=== PATIENT | female | born 2000 ===

== ENCOUNTER 2025-04-06 08:54 | Outpatient (REF) | payer OTHER, SELFPAY | END 2025-04-06 08:55 | disposition home or self-care (01) | LOC: HO.MAMMO 08:54 | PROVIDERS: PCP Emergency Medicine; Visit Provider Emergency Medicine | DX: N63.41 Unspecified lump in right breast, subareolar (principal) | CPT/HCPCS: 76642 ==

== ENCOUNTER → 2025-04-06 09:00 | Outpatient (BNV) | payer OTHER, SELFPAY | PROVIDERS: PCP Emergency Medicine; Visit Provider Internal Medicine | DX: N63.11 Unspecified lump in the right breast, upper outer quadrant (principal) | CPT/HCPCS: 76642 ==